=== PATIENT | female | born 1955 | race Caucasian/White ===

== ENCOUNTER 2019-01-25 14:54 | Inpatient (IN) | payer OTHER ==
[~2019-01-25] VITALS: Ht 157.5 cm; Wt 67.6 kg
[2019-01-25] MEDS ORDERED: SODIUM CHLORIDE FLUSH 10ML SYR IVF ONE (15:00)
[2019-01-25] MEDS ORDERED: ASPIRIN 81 MG TABLET CHEW PO ONE (15:00)
--- NOTE | 2019-01-25 15:04 | NUR ---
PT TO ED FOR LEG, ABD AND FACIAL SWELLING X1 WEEK. PT STATES IT STARTED A WEEK AGO, STARTED TO GO AWAY, THEN GOT WORSE YESTERDAY. PT WENT TO THIS AM AND WAS REFERRED TO ED FOR NEW ONSET AFIB/FLUTTER. CONNECTED TO MONITORS. AFIB 110-170, ALL OTHER VSS ON RA. PA JJ TO BEDSIDE FOR ASSESSMETN. ORDERS RECEIVED. PT TO XR AT THIS TIME.
[2019-01-25] MEDS ORDERED: ASPIRIN 81 MG TABLET CHEW ONE (15:09)
[2019-01-25] MEDS ORDERED: DILTIAZEM 5 MG/ML, 5ML IVPush ONE (15:30)
--- NOTE | 2019-01-25 15:38 | NUR ---
LABD DRAWN AND SENT. EKG COMPLETE. PT MEDICATED PER DEC. NEW ORDERS FOR CHEST CT RECEIVED. VSS. NO NEEDS EXPRESSED. WARMER PLACED UNDER BLANKETS FOR PT COMFORT. CALL LIGHT WITHIN REACH. AWAIING RESULTS AND CT.
[2019-01-25 15:45] LABS: BASOPHILS # (AUTO) 0.01 x10^3/uL (0-0.1); BASOPHILS % (AUTO) 0 % (0-1); EOSINOPHILS % (AUTO) 0 % (1-7); LYMPHOCYTES # (AUTO) 0.29 x10^3/uL (1-3.4); LYMPHOCYTES % (AUTO) 4 % (22-44); MD NO; MEAN CORPUSCULAR HEMOGLOBIN 37.5 pg (27.0-34.8); MEAN CORPUSCULAR HGB CONC 34.3 g/dL (32.4-35.8); MEAN CORPUSCULAR VOLUME 109.3 fL (80-100); MEAN PLATELET VOLUME 8.6 fL (7.4-10.4); MONOCYTES # (AUTO) 0.23 x10^3/uL (0.2-0.8); MONOCYTES % (AUTO) 3 % (2-9); NEUTROPHILS % (AUTO) 93 % (42-75); PLATELET COUNT 215 x10^3/uL (130-400); RED BLOOD COUNT 4.03 x10^6/uL (3.82-5.3); RED CELL DISTRIBUTION WIDTH 14.4 % (9.6-15.2)
[2019-01-25 16:06] LABS: CALCIUM 7.8 mg/dL (8.5-10.1); CHLORIDE 79 mmol/L (98-107)
[2019-01-25 16:11] LABS: CREATININE 0.61 mg/dL (0.55-1.02); TROPONIN I < 0.015 ng/mL (0.000-0.045)
[2019-01-25 16:14] LABS: ANION GAP 9 mmol/L (5-15)
[2019-01-25] MEDS ORDERED: DILTIAZEM 125 MG in DEXTROSE 5% 100 ML IV SCH (16:29)
--- NOTE | 2019-01-25 16:30 | NUR ---
PT RESTING IN ROOM WITH FAMILY AT BEDSIDE. REMAINS TACHY, VSS. PT TO CT AT THIS TIME.
--- NOTE | 2019-01-25 16:35 | NUR ---
EDMD TO BEDSIDE TO UPDATE FAMILY ON POC.
[2019-01-25 16:41] LABS: INTERNATIONAL NORMALIZED RATIO 1.16 (0.93-1.1); PROTHROMBIN TIME 12.1 Seconds (9.6-11.5)
--- NOTE | 2019-01-25 16:52 | NUR ---
pt back from ct
[2019-01-25] MEDS ORDERED: ONDANSETRON 2MG/ML, 2ML IVPush PRN (17:00)
[2019-01-25] MEDS ORDERED: DILTIAZEM 125 MG in SODIUM CHLORIDE 0.9% 100 ML IV PRN ×2 (17:00→19:30)
[2019-01-25] MEDS ORDERED: POLYETHYLENE GLYCOL 17 GM PACKET PO PRN (17:00)
[2019-01-25] MEDS ORDERED: ACETAMINOPHEN 325 MG TABLET PO PRN (17:00)
[2019-01-25] MEDS ORDERED: OMNIPAQUE 350 MG/ML, 100ML BOTTLE ONE (17:02)
--- NOTE | 2019-01-25 17:25 | NUR ---
edmd to bedside to update on poc. awaitng room assignment.
--- NOTE | 2019-01-25 17:37 | NUR ---
PT RESTING IN ROOM WITH FAMILY AT BEDSIDE. HR 80S-130S, ALL OTHER VSS ON RA. AWAITING ROOM ASSIGNMENT.
[2019-01-25 17:42] LABS: FREE T4 (FREE THYROXINE) 0.69 ng/dL (0.76-1.46); TROPONIN I 0.023 ng/mL (0.000-0.045)
--- NOTE | 2019-01-25 17:52 | NUR ---
report to [facility] rader in [facility]. pt ready for transport.
[2019-01-25] MEDS: SODIUM CHLORIDE 0.9% 1,000 ML IV SCH (18:46)
[2019-01-25] MEDS ORDERED: LORazepam 1MG TABLET PO ONE (22:00)
[2019-01-25 23:12] LABS: CALCIUM 7.8 mg/dL (8.5-10.1); CHLORIDE 82 mmol/L (98-107); CREATININE 0.67 mg/dL (0.55-1.02)
[2019-01-25 23:17] LABS: TROPONIN I 0.022 ng/mL (0.000-0.045)
[2019-01-25 23:26] LABS: ANION GAP 11 mmol/L (5-15)
[2019-01-26 01:32] LABS: CALCIUM 7.9 mg/dL (8.5-10.1); CHLORIDE 82 mmol/L (98-107); CREATININE 0.69 mg/dL (0.55-1.02)
[2019-01-26 02:01] LABS: ANION GAP 11 mmol/L (5-15)
[2019-01-26 04:00] VITALS: BP 91/46
[2019-01-26] MEDS: SODIUM CHLORIDE 0.9% 1,000 ML IV SCH (04:48)
[2019-01-26 05:30] LABS: MEAN CORPUSCULAR HGB CONC 34.2 g/dL (32.4-35.8); MEAN CORPUSCULAR VOLUME 108.3 fL (80-100); MEAN PLATELET VOLUME 9.1 fL (7.4-10.4); PLATELET COUNT 160 x10^3/uL (130-400); RED CELL DISTRIBUTION WIDTH 14.3 % (9.6-15.2)
[2019-01-26 05:36] LABS: ALANINE AMINOTRANSFERASE 479 U/L (12-78); ALBUMIN 2.7 g/dL (3.4-5.0); ANION GAP 12 mmol/L (5-15); CALCIUM 8.2 mg/dL (8.5-10.1); CHLORIDE 81 mmol/L (98-107); CREATININE 0.66 mg/dL (0.55-1.02)
[2019-01-26 05:38] LABS: ALKALINE PHOSPHATASE 146 U/L (45-117); BILIRUBIN,TOTAL 1.6 mg/dL (0.2-1.0); TOTAL PROTEIN 5.7 g/dL (6.4-8.2)
[2019-01-26 05:59] LABS: BASOPHILS # (AUTO) 0.01 x10^3/uL (0-0.1); BASOPHILS % (AUTO) 0 % (0-1); EOSINOPHILS # (AUTO) 0.01 x10^3/uL (0-0.4); EOSINOPHILS % (AUTO) 0 % (1-7); LYMPHOCYTES # (AUTO) 0.31 x10^3/uL (1-3.4); LYMPHOCYTES % (AUTO) 3 % (22-44); MD MORPH REVIEW ONLY; MONOCYTES # (AUTO) 0.52 x10^3/uL (0.2-0.8); MONOCYTES % (AUTO) 5 % (2-9); NEUTROPHILS # (AUTO) 9.34 x10^3/uL (1.8-6.8); NEUTROPHILS % (AUTO) 92 % (42-75)
[2019-01-26 06:01] LABS: ANISOCYTOSIS 1+
[2019-01-26 06:02] LABS: <PLATELET ESTIMATE> ADEQUATE; ECHINOCYTES 2+; LARGE PLATELETS 1+; POLYCHROMASIA 1+
[2019-01-26 08:17] LABS: ANION GAP 11 mmol/L (5-15); CHLORIDE 83 mmol/L (98-107); CREATININE 0.71 mg/dL (0.55-1.02)
[2019-01-26] MEDS: LIOTHYRONINE 5 MCG TABLET PO SCH ×3 (08:39→20:50)
[2019-01-26] MEDS: LEVOTHYROXINE 100 MCG INJ IVPush SCH (08:39)
[2019-01-26] MEDS: SENNA/DOCUSATE TABLET PO SCH (08:39)
[2019-01-26] MEDS: SODIUM CHLORIDE 3% 500 ML IV PRN (10:49)
[2019-01-26 13:27] LABS: ALANINE AMINOTRANSFERASE 571 U/L (12-78); ALBUMIN 2.8 g/dL (3.4-5.0); CALCIUM 7.8 mg/dL (8.5-10.1); CHLORIDE 80 mmol/L (98-107); CREATININE 0.71 mg/dL (0.55-1.02)
[2019-01-26 13:31] LABS: ALKALINE PHOSPHATASE 159 U/L (45-117); BILIRUBIN,TOTAL 1.5 mg/dL (0.2-1.0); TOTAL PROTEIN 6.1 g/dL (6.4-8.2)
[2019-01-26 13:40] LABS: ANION GAP 14 mmol/L (5-15)
[2019-01-26] MEDS ORDERED: OMNIPAQUE 350 MG/ML, 100ML BOTTLE ONE (14:05)
[2019-01-27] MEDS: SODIUM CHLORIDE 3% 500 ML IV PRN ×2 (03:59→18:08)
[2019-01-27 08:50] LABS: ANION GAP 10 mmol/L (5-15)
[2019-01-27 08:51] LABS: CALCIUM 7.5 mg/dL (8.5-10.1); CHLORIDE 86 mmol/L (98-107)
[2019-01-27 08:52] LABS: ALANINE AMINOTRANSFERASE 556 U/L (12-78); ALBUMIN 2.6 g/dL (3.4-5.0); ALKALINE PHOSPHATASE 142 U/L (45-117); CREATININE 0.58 mg/dL (0.55-1.02); TOTAL PROTEIN 5.5 g/dL (6.4-8.2)
[2019-01-27] MEDS: LIOTHYRONINE 5 MCG TABLET PO SCH ×3 (09:22→20:26)
[2019-01-27] MEDS: SENNA/DOCUSATE TABLET PO SCH (09:22)
[2019-01-27] MEDS: LEVOTHYROXINE 100 MCG INJ IVPush SCH (09:23)
[2019-01-27] MEDS ORDERED: AMIODARONE 900 MG in DEXTROSE 5% 482 ML IV PRN (09:58)
[2019-01-27] MEDS ORDERED: AMIODARONE 150 MG in DEXTROSE 5% 100 ML IVPB ONE (09:58)
[2019-01-27] MEDS ORDERED: FILTER 0.22 MICRON IV PRN (10:00)
[2019-01-27] MEDS ORDERED: DILTIAZEM 5 MG/ML, 5ML IVPush ONE ×2 (10:30→15:30)
[2019-01-27] MEDS ORDERED: HEPARIN 5,000 UNITS/ML, 1ML IV ONE (10:30)
[2019-01-27] MEDS ORDERED: HEPARIN 5,000 UNITS/ML, 1ML IV PRN (10:30)
[2019-01-27] MEDS ORDERED: DILTIAZEM 125 MG in SODIUM CHLORIDE 0.9% 100 ML IV SCH (10:30)
[2019-01-27] MEDS: HEPARIN 25,000 UNITS/500ML PMX 500 ML IV PRN (14:01)
[2019-01-27] MEDS ORDERED: DIGOXIN 0.25 MG/ML, 2ML IVPush ONE ×2 (15:30→20:00)
[2019-01-27] MEDS: FUROSEMIDE 20 MG/2 ML IV SCH (16:07)
[2019-01-28] MEDS ORDERED: DIGOXIN 0.25 MG/ML, 2ML IVPush ONE
[2019-01-28 02:52] LABS: ALANINE AMINOTRANSFERASE 465 U/L (12-78); ALBUMIN 2.5 g/dL (3.4-5.0); ANION GAP 10 mmol/L (5-15); CALCIUM 7.3 mg/dL (8.5-10.1); CHLORIDE 95 mmol/L (98-107); CREATININE 0.54 mg/dL (0.55-1.02)
[2019-01-28 03:02] LABS: ALKALINE PHOSPHATASE 137 U/L (45-117); BILIRUBIN,TOTAL 0.8 mg/dL (0.2-1.0); FREE T4 (FREE THYROXINE) 0.85 ng/dL (0.76-1.46); TOTAL PROTEIN 5.3 g/dL (6.4-8.2)
[2019-01-28] MEDS: SODIUM CHLORIDE 3% 500 ML IV PRN (04:53)
[2019-01-28] MEDS: FUROSEMIDE 20 MG/2 ML IV SCH ×2 (08:04→16:33)
[2019-01-28] MEDS: LEVOTHYROXINE 100 MCG INJ IVPush SCH (08:04)
[2019-01-28] MEDS: LIOTHYRONINE 5 MCG TABLET PO SCH ×3 (08:04→20:44)
[2019-01-28] MEDS: SENNA/DOCUSATE TABLET PO SCH (08:04)
[2019-01-28] MEDS: DIGOXIN 0.125 MG TABLET PO SCH (08:05)
[2019-01-28] MEDS ORDERED: DIGOXIN 0.125 MG TABLET PO SCH (09:00)
[2019-01-28] MEDS ORDERED: DILTIAZEM 125 MG in SODIUM CHLORIDE 0.9% 100 ML IV SCH (10:30)
[2019-01-28] MEDS ORDERED: AMIODARONE 150 MG in DEXTROSE 5% 100 ML IV ONE (11:00)
[2019-01-28] MEDS: AMIODARONE 900 MG in DEXTROSE 5% 482 ML IV PRN (11:03)
[2019-01-28] MEDS: FILTER 0.22 MICRON FOR AMIODARONE IV PRN (11:04)
[2019-01-28] MEDS: HEPARIN 25,000 UNITS/500ML PMX 500 ML IV PRN (20:48)
[2019-01-29] MEDS: SODIUM CHLORIDE 3% 500 ML IV PRN (00:29)
[2019-01-29 03:59] LABS: ALANINE AMINOTRANSFERASE 353 U/L (12-78); ALBUMIN 2.5 g/dL (3.4-5.0); ANION GAP 7 mmol/L (5-15); CALCIUM 7.5 mg/dL (8.5-10.1); CHLORIDE 98 mmol/L (98-107); CREATININE 0.58 mg/dL (0.55-1.02)
[2019-01-29 04:01] LABS: ALKALINE PHOSPHATASE 133 U/L (45-117); BILIRUBIN,TOTAL 0.8 mg/dL (0.2-1.0); TOTAL PROTEIN 5.3 g/dL (6.4-8.2)
[2019-01-29 04:05] LABS: BASOPHILS # (AUTO) 0.03 x10^3/uL (0-0.1); BASOPHILS % (AUTO) 0 % (0-1); EOSINOPHILS # (AUTO) 0.07 x10^3/uL (0-0.4); EOSINOPHILS % (AUTO) 1 % (1-7); LYMPHOCYTES # (AUTO) 0.51 x10^3/uL (1-3.4); LYMPHOCYTES % (AUTO) 6 % (22-44); MD NO; MEAN CORPUSCULAR HEMOGLOBIN 36.8 pg (27.0-34.8); MEAN CORPUSCULAR HGB CONC 33.6 g/dL (32.4-35.8); MEAN CORPUSCULAR VOLUME 109.7 fL (80-100); MONOCYTES # (AUTO) 0.53 x10^3/uL (0.2-0.8); MONOCYTES % (AUTO) 7 % (2-9); NEUTROPHILS # (AUTO) 6.79 x10^3/uL (1.8-6.8); NEUTROPHILS % (AUTO) 86 % (42-75); PLATELET COUNT 217 x10^3/uL (130-400); RED BLOOD COUNT 3.94 x10^6/uL (3.82-5.3); RED CELL DISTRIBUTION WIDTH 14.7 % (9.6-15.2)
[2019-01-29] MEDS: SENNA/DOCUSATE TABLET PO SCH (08:13)
[2019-01-29] MEDS: LIOTHYRONINE 5 MCG TABLET PO SCH (08:13)
[2019-01-29] MEDS: FUROSEMIDE 20 MG/2 ML IV SCH ×2 (08:14→17:23)
[2019-01-29] MEDS: DIGOXIN 0.125 MG TABLET PO SCH (08:14)
[2019-01-29] MEDS: LEVOTHYROXINE 100 MCG INJ IVPush SCH (08:25)
[2019-01-29] MEDS ORDERED: MAGNESIUM SULFATE PMX 2GM/50ML 50 ML IV ONE (09:30)
[2019-01-29 13:06] VITALS: BP 93/57
[2019-01-29] MEDS: AMIODARONE 900 MG in DEXTROSE 5% 482 ML IV PRN (13:28)
[2019-01-29] MEDS: FILTER 0.22 MICRON FOR AMIODARONE IV PRN (13:28)
[2019-01-29] MEDS ORDERED: POTASSIUM CHLORIDE 20 MEQ TAB.ER.PRT PO SCH (15:30)
[2019-01-29 19:54] VITALS: BP 112/71
[2019-01-30] VITALS (7 sets, daily range): BP systolic 80–121; BP diastolic 53–74
[2019-01-30] MEDS: HEPARIN 25,000 UNITS/500ML PMX 500 ML IV PRN (00:04)
[2019-01-30 05:17] LABS: BASOPHILS # (AUTO) 0.02 x10^3/uL (0-0.1); BASOPHILS % (AUTO) 0 % (0-1); EOSINOPHILS # (AUTO) 0.01 x10^3/uL (0-0.4); EOSINOPHILS % (AUTO) 0 % (1-7); LYMPHOCYTES # (AUTO) 0.41 x10^3/uL (1-3.4); LYMPHOCYTES % (AUTO) 5 % (22-44); MD NO; MEAN CORPUSCULAR HEMOGLOBIN 36.2 pg (27.0-34.8); MEAN CORPUSCULAR HGB CONC 33.2 g/dL (32.4-35.8); MEAN CORPUSCULAR VOLUME 109.2 fL (80-100); MEAN PLATELET VOLUME 8.9 fL (7.4-10.4); MONOCYTES # (AUTO) 0.62 x10^3/uL (0.2-0.8); MONOCYTES % (AUTO) 8 % (2-9); NEUTROPHILS # (AUTO) 6.59 x10^3/uL (1.8-6.8); NEUTROPHILS % (AUTO) 86 % (42-75); PLATELET COUNT 201 x10^3/uL (130-400); RED BLOOD COUNT 4.16 x10^6/uL (3.82-5.3); RED CELL DISTRIBUTION WIDTH 14.6 % (9.6-15.2)
[2019-01-30 05:28] LABS: CALCIUM 7.4 mg/dL (8.5-10.1); CHLORIDE 90 mmol/L (98-107)
[2019-01-30] MEDS: LEVOTHYROXINE 50 MCG TABLET PO SCH (05:38)
[2019-01-30 05:45] LABS: ALANINE AMINOTRANSFERASE 270 U/L (12-78); ALBUMIN 2.4 g/dL (3.4-5.0); ALKALINE PHOSPHATASE 127 U/L (45-117); ANION GAP 7 mmol/L (5-15); CREATININE 0.53 mg/dL (0.55-1.02); TOTAL PROTEIN 5.4 g/dL (6.4-8.2)
[2019-01-30] MEDS: FUROSEMIDE 20 MG/2 ML IV SCH ×2 (09:56→17:57)
[2019-01-30] MEDS: SENNA/DOCUSATE TABLET PO SCH (09:57)
[2019-01-30] MEDS: APIXABAN 5 MG TABLET PO SCH ×2 (09:57→21:12)
[2019-01-30] MEDS: AMIODARONE 200 MG TABLET PO SCH ×2 (09:57→21:00)
[2019-01-30] MEDS: POTASSIUM CHLORIDE 20 MEQ TAB.ER.PRT PO SCH (11:24)
[2019-01-30] MEDS: DIGOXIN 0.125 MG TABLET PO SCH (11:24)
[2019-01-30 15:12] LABS: CHLORIDE,URINE RANDOM 46 mmol/L; POTASSIUM,URINE RANDOM 8 mmol/L; SODIUM,URINE RANDOM 34 mmol/L
[2019-01-30 15:53] LABS: OSMOLALITY,URINE 153 mOsm/kg (500-850)
[2019-01-31 00:44] VITALS: BP 100/65
[2019-01-31] MEDS: LEVOTHYROXINE 50 MCG TABLET PO SCH (05:50)
[2019-01-31 07:40] VITALS: BP 114/74
[2019-01-31] MEDS: FUROSEMIDE 20 MG/2 ML IV SCH ×2 (08:11→17:16)
[2019-01-31] MEDS: SENNA/DOCUSATE TABLET PO SCH (08:11)
[2019-01-31] MEDS: APIXABAN 5 MG TABLET PO SCH ×2 (08:12→21:49)
[2019-01-31] MEDS: DIGOXIN 0.125 MG TABLET PO SCH (08:12)
[2019-01-31] MEDS: POTASSIUM CHLORIDE 20 MEQ TAB.ER.PRT PO SCH (08:12)
[2019-01-31] MEDS: AMIODARONE 200 MG TABLET PO SCH ×2 (08:13→21:48)
[2019-01-31 09:06] LABS: ALBUMIN 2.6 g/dL (3.4-5.0); ANION GAP 6 mmol/L (5-15); CALCIUM 8.3 mg/dL (8.5-10.1); CHLORIDE 91 mmol/L (98-107); CREATININE 0.55 mg/dL (0.55-1.02)
[2019-01-31 11:55] LABS: MICROSCOPIC NOT IND
[2019-01-31 11:58] LABS: CULTURE INDICATED? NO
[2019-01-31 13:47] LABS: CREATININE,URINE RANDOM < 13.00 mg/dL; PROTEIN/CREATININE RATIO,URINE < 385 (0-200); TOTAL PROTEIN,URINE RANDOM < 5 mg/dL (0-12)
[2019-01-31 14:15] VITALS: BP 92/64
[2019-01-31 17:17] VITALS: BP 112/73
[2019-01-31 19:44] VITALS: BP 93/62
[2019-02-01 01:20] VITALS: BP 110/73
[2019-02-01 05:22] LABS: BASOPHILS # (AUTO) 0.03 x10^3/uL (0-0.1); BASOPHILS % (AUTO) 1 % (0-1); EOSINOPHILS # (AUTO) 0.01 x10^3/uL (0-0.4); EOSINOPHILS % (AUTO) 0 % (1-7); LYMPHOCYTES # (AUTO) 0.45 x10^3/uL (1-3.4); LYMPHOCYTES % (AUTO) 7 % (22-44); MD NO; MEAN CORPUSCULAR HGB CONC 33.8 g/dL (32.4-35.8); MEAN CORPUSCULAR VOLUME 109.3 fL (80-100); MEAN PLATELET VOLUME 8.7 fL (7.4-10.4); MONOCYTES # (AUTO) 0.65 x10^3/uL (0.2-0.8); MONOCYTES % (AUTO) 11 % (2-9); NEUTROPHILS # (AUTO) 4.97 x10^3/uL (1.8-6.8); NEUTROPHILS % (AUTO) 81 % (42-75); PLATELET COUNT 205 x10^3/uL (130-400); RED BLOOD COUNT 3.88 x10^6/uL (3.82-5.3); RED CELL DISTRIBUTION WIDTH 14.4 % (9.6-15.2)
[2019-02-01 05:32] LABS: ANION GAP 5 mmol/L (5-15); CALCIUM 8.2 mg/dL (8.5-10.1); CHLORIDE 92 mmol/L (98-107); CREATININE 0.54 mg/dL (0.55-1.02)
[2019-02-01] MEDS: LEVOTHYROXINE 50 MCG TABLET PO SCH (05:41)
[2019-02-01 06:52] VITALS: BP 106/68
[2019-02-01] MEDS: AMIODARONE 200 MG TABLET PO SCH ×2 (09:40→21:38)
[2019-02-01] MEDS: POTASSIUM CHLORIDE 20 MEQ TAB.ER.PRT PO SCH (09:40)
[2019-02-01] MEDS: FUROSEMIDE 20 MG/2 ML IV SCH ×2 (09:40→17:00)
[2019-02-01] MEDS: APIXABAN 5 MG TABLET PO SCH ×2 (09:41→21:38)
[2019-02-01] MEDS: DIGOXIN 0.125 MG TABLET PO SCH (09:41)
[2019-02-01] MEDS: SENNA/DOCUSATE TABLET PO SCH (09:42)
[2019-02-01 17:48] VITALS: BP_SYST 93; BP_SYST 97; BP_DIAS 60; BP_DIAS 62
[2019-02-01 20:24] VITALS: BP 107/68
[2019-02-02 03:20] VITALS: BP 102/59
[2019-02-02 06:11] LABS: BASOPHILS # (AUTO) 0.04 x10^3/uL (0-0.1); BASOPHILS % (AUTO) 1 % (0-1); EOSINOPHILS # (AUTO) 0.01 x10^3/uL (0-0.4); EOSINOPHILS % (AUTO) 0 % (1-7); LYMPHOCYTES # (AUTO) 0.55 x10^3/uL (1-3.4); LYMPHOCYTES % (AUTO) 9 % (22-44); MD NO; MEAN CORPUSCULAR HEMOGLOBIN 36.7 pg (27.0-34.8); MEAN CORPUSCULAR HGB CONC 33.6 g/dL (32.4-35.8); MEAN CORPUSCULAR VOLUME 109.5 fL (80-100); MEAN PLATELET VOLUME 8.6 fL (7.4-10.4); MONOCYTES # (AUTO) 0.77 x10^3/uL (0.2-0.8); MONOCYTES % (AUTO) 12 % (2-9); NEUTROPHILS # (AUTO) 4.87 x10^3/uL (1.8-6.8); NEUTROPHILS % (AUTO) 78 % (42-75); PLATELET COUNT 210 x10^3/uL (130-400); RED BLOOD COUNT 4.17 x10^6/uL (3.82-5.3)
[2019-02-02 06:20] LABS: ANION GAP 3 mmol/L (5-15); CALCIUM 8.8 mg/dL (8.5-10.1); CHLORIDE 93 mmol/L (98-107)
[2019-02-02 06:21] LABS: CREATININE 0.56 mg/dL (0.55-1.02)
[2019-02-02] MEDS: LEVOTHYROXINE 50 MCG TABLET PO SCH (06:23)
[2019-02-02 06:40] VITALS: BP 91/61
[2019-02-02] MEDS ORDERED: DIGO125T PO (08:51)
[2019-02-02] MEDS ORDERED: AMIO200T42 PO (08:51)
[2019-02-02] MEDS ORDERED: LEVO50TA PO (08:51)
[2019-02-02] MEDS ORDERED: TRAM50TA2 PO (08:51)
[2019-02-02] MEDS ORDERED: POTA20TA6 PO (08:51)
[2019-02-02] MEDS ORDERED: FURO-92 PO (08:51)
[2019-02-02] MEDS ORDERED: APIX5TAB PO (08:51)
[2019-02-02] MEDS: POTASSIUM CHLORIDE 20 MEQ TAB.ER.PRT PO SCH (08:55)
[2019-02-02] MEDS: AMIODARONE 200 MG TABLET PO SCH (08:56)
[2019-02-02] MEDS: DIGOXIN 0.125 MG TABLET PO SCH (08:56)
[2019-02-02] MEDS: APIXABAN 5 MG TABLET PO SCH (08:56)
[2019-02-02] MEDS: SENNA/DOCUSATE TABLET PO SCH (08:57)
[2019-02-02] MEDS: FUROSEMIDE 20 MG/2 ML IV SCH (08:57)
[2019-02-03] MEDS ORDERED: AMIODARONE 200 MG TABLET PO SCH (09:00)
== END 2019-02-02 11:30 | disposition home or self-care (01) | DRG 308 ==
LOC: ED 16:37 → EDIP 16:38 → ED 17:12 → CCU 18:14 → ICU 01-26 06:42 → 5SO 01-29 11:32 → DCLOUNGE 02-02 11:00
PROVIDERS: ADMIT Internal Medicine; ATTEND Internal Medicine
DX: I48.92 Unspecified atrial flutter (principal); G93.41 Metabolic encephalopathy; I50.43 Acute on chronic combined systolic (congestive) and diastolic (congestive) heart failure; E87.1 Hypo-osmolality and hyponatremia; C81.90 Hodgkin lymphoma, unspecified, unspecified site; D68.69 Other thrombophilia; E44.0 Moderate protein-calorie malnutrition; M48.54XA Collapsed vertebra, not elsewhere classified, thoracic region, initial encounter for fracture; R18.8 Other ascites; D53.9 Nutritional anemia, unspecified; D75.89 Other specified diseases of blood and blood-forming organs; E03.9 Hypothyroidism, unspecified; E16.2 Hypoglycemia, unspecified; E83.42 Hypomagnesemia; E83.51 Hypocalcemia; E87.6 Hypokalemia; F17.210 Nicotine dependence, cigarettes, uncomplicated; G89.29 Other chronic pain; I08.3 Combined rheumatic disorders of mitral, aortic and tricuspid valves; I27.20 Pulmonary hypertension, unspecified; I48.91 Unspecified atrial fibrillation; F12.90 Cannabis use, unspecified, uncomplicated; M54.9 Dorsalgia, unspecified; J40 Bronchitis, not specified as acute or chronic; Z79.01 Long term (current) use of anticoagulants; Z80.0 Family history of malignant neoplasm of digestive organs; Z90.81 Acquired absence of spleen; Z91.14 Patient's other noncompliance with medication regimen; Z92.3 Personal history of irradiation; Z98.82 Breast implant status
CPT/HCPCS: 36415; 70450; 71046; 71260; 71275; 74177; 80048; 80053; 80069; 80162; 81003; 82040; 82105; 82378; 82436; 82533; 82570; 82607; 82962; 83735; 83880; 83930; 83935; 84100; 84133; 84156; 84295; 84300; 84439; 84443; 84481; 84484; 85025; 85379; 85520; 85610; 85730; 86301; 86304; 87081; 93005; 93306; 94667; 96374; 99285; G0378; J1644; J2405; Q9967; J0282; J1160; J1940; J3475; J7030; J7060

== ENCOUNTER 2019-03-14 09:36 | Inpatient (IN) | payer OTHER ==
[~2019-03-14] VITALS: Ht 157.5 cm; Wt 57.2 kg
[~2019-03-14 09:36] MED LIST: AMIO200T42 PO; APIX5TAB PO; DIGO125T PO; FURO-92 PO; LEVO50TA PO; POTA20TA6 PO; TRAM50TA2 PO
[2019-03-14 10:44] LABS: MEAN CORPUSCULAR HEMOGLOBIN 36.5 pg (27.0-34.8); MEAN CORPUSCULAR HGB CONC 33.2 g/dL (32.4-35.8); MEAN CORPUSCULAR VOLUME 109.9 fL (80-100); MEAN PLATELET VOLUME 8.8 fL (7.4-10.4); PLATELET COUNT 394 x10^3/uL (130-400); RED CELL DISTRIBUTION WIDTH 15.6 % (9.6-15.2)
[2019-03-14 10:56] LABS: ALBUMIN 3.1 g/dL (3.4-5.0); ANION GAP 9 mmol/L (5-15); CALCIUM 9.1 mg/dL (8.5-10.1); CHLORIDE 96 mmol/L (98-107)
[2019-03-14 10:59] LABS: ALANINE AMINOTRANSFERASE 27 U/L (12-78); ALKALINE PHOSPHATASE 91 U/L (45-117); BILIRUBIN,TOTAL 1.1 mg/dL (0.2-1.0); CREATININE 0.82 mg/dL (0.55-1.02); TOTAL PROTEIN 7.8 g/dL (6.4-8.2)
[2019-03-14 11:02] LABS: MD YES
[2019-03-14 11:03] LABS: ANISOCYTOSIS 1+; BAND#(MANUAL) 0.79 x10^3/uL; BANDS%(MANUAL) 5 % (0-7); LYMPH#(MANUAL) 0.63 x10^3/uL (1-3.4); LYMPHS% (MANUAL) 4 % (22-44); MONOS#(MANUAL) 0.47 x10^3/uL (0.3-2.7); MONOS% (MANUAL) 3 % (2-9); SEG#(MANUAL) 13.82 x10^3/uL (1.8-6.8); SEGS% (MANUAL) 88 % (42-75)
[2019-03-14] MEDS ORDERED: FURO40TA6 PO (11:03)
[2019-03-14 11:04] LABS: <PLATELET ESTIMATE> ADEQUATE; <PLT MORPHOLOGY> NORMAL PLT MORPH
--- NOTE | 2019-03-14 12:03 | NUR ---
PT TO CT WITH [facility]CH TRANSPORT. PT C/O HUNGER AND REQUESTS TO EAT. I INSTRUCTED HER THAT SHE CAN NOT HAVE ANYTHING TO EAT OR DRINK UNTIL STUDIES HAVE BEEN COMPLETED. 2/2 CONCERNS FOR POSSIBLE SURGERY TODAY.
[2019-03-14] MEDS ORDERED: OMNIPAQUE 350 MG/ML, 100ML BOTTLE ONE (12:10)
[2019-03-14 12:33] LABS: MICROSCOPIC INDICATED
--- NOTE | 2019-03-14 12:49 | NUR ---
ER PA AT BEDSIDE. TO DISCUSS PLAN FOR SURGERY AND DELAY 2/2 BEING ON BLOOD THINNER
--- NOTE | 2019-03-14 12:55 | NUR ---
PT OOB AMBULATE TO BATHROOM.
[2019-03-14 12:59] LABS: CULTURE INDICATED? NO
--- NOTE | 2019-03-14 14:10 | NUR ---
RECEIVED REPORT FROM JULISSA HENDERSON AND ASSUMED CARE OF PT. PT RETURNING TO ROOM FROM BATHROOM. PT C/O ABDOMINAL PAIN 04/13 AT THIS TIME
--- NOTE | 2019-03-14 14:17 | NUR ---
SPOKE WITH ROMELIA WITH DR GONZALEZ'S OFFICE: SURGERY TOMORROW AT 1700. NPO AT MIDNIGHT. CONSENT FOR OPEN REPAIR LEFT INGUINAL HERNIA WITH MESH WITH POSSIBLE BOWEL RESECTION
--- NOTE | 2019-03-14 15:15 | NUR ---
PT C/O ABDOMINAL PAIN. DR DOS SANTOS NO LONGER HERE. CALL PUT OUT TO HOSPITALIST AND MADE AWARE WE NEED ADMIT ORDERS AND THAT THE PT NEEDS ORDER FOR PAIN MEDS. HOSPITALIST STATES HE WILL BE DOWN RIGHT AWAY
--- NOTE | 2019-03-14 15:53 | NUR ---
HOSPITALIST AT BEDSIDE
[2019-03-14] MEDS ORDERED: MORPHINE SULFATE 4 MG/ML, 1ML ONE (15:55)
[2019-03-14] MEDS ORDERED: ONDANSETRON 2MG/ML, 2ML ONE (15:55)
[2019-03-14] MEDS ORDERED: hydrALAzine 20 MG/ML, 1ML IVPush PRN (16:00)
[2019-03-14] MEDS ORDERED: ACETAMINOPHEN 325 MG TABLET PO PRN (16:00)
[2019-03-14] MEDS ORDERED: DOCUSATE 100 MG CAPSULE PO PRN (16:00)
[2019-03-14] MEDS: ONDANSETRON 2MG/ML, 2ML IVPush PRN ×2 (16:06→21:38)
[2019-03-14] MEDS: morphine SULFATE 10 MG/ML, 1ML IVPush PRN ×2 (16:06→21:40)
--- NOTE | 2019-03-14 16:09 | NUR ---
AFTER HOSPITALIST EXAM, MEDICATED FOR PAIN PER ORDERS
--- NOTE | 2019-03-14 16:34 | NUR ---
BREAK RN: PT STATES HER PAIN IS BETTER. NO ACUTE DISTRESS NOTED. SIGNIFICANT OTHER BEDSIDE. NO NEEDS REQUESTED AT THIS TIME.
--- NOTE | 2019-03-14 16:44 | NUR ---
BREAK RN: PT AND FAMILY RE-EDUCATED REGARDING NPO STATUS. HOSPITALIST STATED PT COULD HAVE ICE CHIPS AND SPIT OUT. PT AND FAMILY VERBALIZED UNDERSTANDING. NO NEEDS REQUESTED AT THIS TIME.
--- NOTE | 2019-03-14 16:52 | NUR ---
BREAK RN: BEDSIDE REPORT TO BEATRIZ GAMBINO.
--- NOTE | 2019-03-14 17:13 | NUR ---
PT MORE COMFORTABLE SINCE MEDICATED FOR PAIN. FAMILY AT BEDSIDE. AWAITING ROOM ON FLOOR
[2019-03-14] MEDS: D5%-LACTATED RINGERS 1,000 ML IV SCH (18:35)
--- NOTE | 2019-03-14 19:14 | NUR ---
PT HOLDING FOR ROOM ASSIGNMENT. PLACED ON HOSPITAL BED IN ER ROOM. PT DESCRIBES PAIN AT THIS TIME MORE LOCALIZED TO LOCATION OF LEFT UMBILICAL HERNIA, 12/12. DENIES NAUSEA OR VOMITING
--- NOTE | 2019-03-14 19:37 | NUR ---
REPORT TO TOD HENDERSON. PT TO BE TRANSPORTED TO FLOOR.
[2019-03-14 20:32] VITALS: BP 113/73
[2019-03-15 01:01] VITALS: BP 99/64
[2019-03-15 01:28] VITALS: BP 102/68
[2019-03-15] MEDS: morphine SULFATE 10 MG/ML, 1ML IVPush PRN ×4 (01:33→13:39)
[2019-03-15 05:59] VITALS: BP 104/70
[2019-03-15 06:19] LABS: MEAN CORPUSCULAR HEMOGLOBIN 36.9 pg (27.0-34.8); MEAN CORPUSCULAR HGB CONC 33.1 g/dL (32.4-35.8); MEAN CORPUSCULAR VOLUME 111.5 fL (80-100); MEAN PLATELET VOLUME 8.8 fL (7.4-10.4); PLATELET COUNT 333 x10^3/uL (130-400); RED BLOOD COUNT 3.57 x10^6/uL (3.82-5.3); RED CELL DISTRIBUTION WIDTH 15.5 % (9.6-15.2)
[2019-03-15 06:23] LABS: ANION GAP 3 mmol/L (5-15); CALCIUM 8.2 mg/dL (8.5-10.1); CHLORIDE 98 mmol/L (98-107); CREATININE 0.78 mg/dL (0.55-1.02)
[2019-03-15 06:35] LABS: MD YES
[2019-03-15 06:37] LABS: ANISOCYTOSIS 1+; BAND#(MANUAL) 0.09 x10^3/uL; BANDS%(MANUAL) 1 % (0-7); EOS#(MANUAL) 0.09 x10^3/uL (0.0-0.4); EOS% (MANUAL) 1 % (1-7); LYMPH#(MANUAL) 0.18 x10^3/uL (1-3.4); LYMPHS% (MANUAL) 2 % (22-44); MONOS#(MANUAL) 1.44 x10^3/uL (0.3-2.7); MONOS% (MANUAL) 16 % (2-9); MYELOCYTES# (MANUAL) 0.09 x10^3/uL (0-0); MYELOCYTES% (MANUAL) 1 % (0-0); SEG#(MANUAL) 7.11 x10^3/uL (1.8-6.8); SEGS% (MANUAL) 79 % (42-75)
[2019-03-15 06:38] LABS: CRENATED 1+
[2019-03-15 06:39] LABS: <PLATELET ESTIMATE> ADEQUATE
[2019-03-15 06:40] VITALS: BP 96/62
[2019-03-15 06:42] LABS: LARGE PLATELETS 1+
[2019-03-15] MEDS ORDERED: PANTOPRAZOLE 40 MG IV IVPush SCH (07:30)
[2019-03-15] MEDS: D5%-LACTATED RINGERS 1,000 ML IV SCH (09:20)
[2019-03-15] MEDS: LEVOTHYROXINE 50 MCG TABLET PO SCH (09:55)
[2019-03-15] MEDS: DIGOXIN 0.125 MG TABLET PO SCH (09:55)
[2019-03-15 12:18] VITALS: BP 101/64
[2019-03-15] MEDS ORDERED: FENTANYL PF 100 MCG/2ML ONE (16:39)
[2019-03-15] MEDS ORDERED: MIDAZOLAM 1 MG/ML, 2ML ONE (16:39)
[2019-03-15] MEDS ORDERED: DEXAMETHASONE 4 MG/ML, 1ML ONE ×2 (16:52→17:20)
[2019-03-15] MEDS ORDERED: SUCCINYLCHOLINE 20 MG/ML, 10ML ONE (16:52)
[2019-03-15] MEDS ORDERED: PHENYLEPHRINE 10 MG/ML ONE (16:52)
[2019-03-15] MEDS ORDERED: VASOPRESSIN 20 UNIT/ML, 1ML ONE (17:20)
[2019-03-15] MEDS ORDERED: ONDANSETRON 2MG/ML, 2ML ONE (17:20)
[2019-03-15] MEDS ORDERED: CEFAZOLIN 1,000 MG ONE (17:20)
[2019-03-15] MEDS ORDERED: PROPOFOL 10 MG/ML, 20ML ONE (17:20)
[2019-03-15] MEDS ORDERED: BUPIVACAINE/EPI 0.5% 1:200K ONE (17:26)
[2019-03-15] MEDS ORDERED: ACETAMINOPHEN 325 MG TABLET PO PRN (17:30)
[2019-03-15] MEDS ORDERED: ONDANSETRON 2MG/ML, 2ML IV PRN ×2 (17:30→19:30)
[2019-03-15] MEDS ORDERED: METOPROLOL 1 MG/ML, 5ML IV PRN (17:30)
[2019-03-15] MEDS ORDERED: hydrALAzine 20 MG/ML, 1ML IV PRN (17:30)
[2019-03-15] MEDS ORDERED: PROMETHAZINE 25 MG/ML, 1ML IV PRN (17:30)
[2019-03-15] MEDS ORDERED: FENTANYL PF 100 MCG/2ML IV PRN (17:30)
[2019-03-15] MEDS ORDERED: OXYcodone 5 MG/5 ML ORAL.SOL UDC PO PRN (17:30)
[2019-03-15] MEDS ORDERED: ALBUTEROL/IPRATROPIUM 2.5MG/0.5MG, 3 ML NPPB PRN (17:30)
[2019-03-15] MEDS ORDERED: POTASSIUM CHLORIDE 20 MEQ in SODIUM CHLORIDE 0.9% 1,000 ML IV SCH (19:30)
[2019-03-15] MEDS ORDERED: morphine SULFATE 10 MG/ML, 1ML IV PRN (19:30)
[2019-03-15] MEDS: OXYcodone IR 5MG TABLET PO PRN (20:15)
[2019-03-15] MEDS: SODIUM CHLORIDE 0.9% 500 ML IV SCH ×2 (22:29→23:26)
[2019-03-15] MEDS ORDERED: SODIUM CHLORIDE 0.9% 500 ML IV PRN ×2 (22:30→23:30)
[2019-03-16] MEDS: OXYcodone IR 5MG TABLET PO PRN ×3 (03:03→14:47)
[2019-03-16 04:29] LABS: MEAN CORPUSCULAR HEMOGLOBIN 37.1 pg (27.0-34.8); MEAN CORPUSCULAR HGB CONC 33.2 g/dL (32.4-35.8); MEAN PLATELET VOLUME 8.9 fL (7.4-10.4); PLATELET COUNT 330 x10^3/uL (130-400); RED BLOOD COUNT 3.29 x10^6/uL (3.82-5.3); RED CELL DISTRIBUTION WIDTH 15.4 % (9.6-15.2)
[2019-03-16 04:41] LABS: ALBUMIN 2.4 g/dL (3.4-5.0); ANION GAP 6 mmol/L (5-15); CALCIUM 7.7 mg/dL (8.5-10.1); CHLORIDE 103 mmol/L (98-107)
[2019-03-16 04:45] LABS: ALANINE AMINOTRANSFERASE 20 U/L (12-78); ALKALINE PHOSPHATASE 67 U/L (45-117); BILIRUBIN,TOTAL 0.6 mg/dL (0.2-1.0); TOTAL PROTEIN 6.3 g/dL (6.4-8.2)
[2019-03-16 04:53] LABS: BASOPHILS % (AUTO) 0 % (0-1); EOSINOPHILS % (AUTO) 0 % (1-7); LYMPHOCYTES # (AUTO) 0.18 x10^3/uL (1-3.4); LYMPHOCYTES % (AUTO) 2 % (22-44); MD SCAN; MONOCYTES # (AUTO) 0.24 x10^3/uL (0.2-0.8); MONOCYTES % (AUTO) 2 % (2-9); NEUTROPHILS # (AUTO) 10.16 x10^3/uL (1.8-6.8); NEUTROPHILS % (AUTO) 96 % (42-75)
[2019-03-16] MEDS: CEFOTETAN PMX 1GM/50ML 50 ML IVPB SCH ×2 (05:15→17:16)
[2019-03-16] MEDS: LEVOTHYROXINE 50 MCG TABLET PO SCH (05:15)
[2019-03-16] MEDS: AMIODARONE 200 MG TABLET PO SCH (08:09)
[2019-03-16] MEDS: DIGOXIN 0.125 MG TABLET PO SCH (08:09)
[2019-03-16] MEDS: APIXABAN 5 MG TABLET PO SCH ×2 (08:09→20:09)
[2019-03-16 16:08] VITALS: BP 115/77
[2019-03-16 19:16] VITALS: BP 109/70
[2019-03-16] MEDS: morphine SULFATE 10 MG/ML, 1ML IVPush PRN (20:17)
[2019-03-17] MEDS: morphine SULFATE 10 MG/ML, 1ML IVPush PRN ×3 (00:55→12:12)
[2019-03-17 01:34] VITALS: BP 100/61
[2019-03-17] MEDS: LEVOTHYROXINE 50 MCG TABLET PO SCH (05:19)
[2019-03-17 06:15] LABS: MEAN CORPUSCULAR HEMOGLOBIN 36.2 pg (27.0-34.8); MEAN CORPUSCULAR HGB CONC 32.7 g/dL (32.4-35.8); MEAN CORPUSCULAR VOLUME 110.8 fL (80-100); MEAN PLATELET VOLUME 8.8 fL (7.4-10.4); PLATELET COUNT 337 x10^3/uL (130-400); RED BLOOD COUNT 3.45 x10^6/uL (3.82-5.3); RED CELL DISTRIBUTION WIDTH 15.3 % (9.6-15.2)
[2019-03-17 06:21] LABS: CHLORIDE 102 mmol/L (98-107)
[2019-03-17 06:28] LABS: ANION GAP 5 mmol/L (5-15); CALCIUM 8.1 mg/dL (8.5-10.1); CREATININE 0.75 mg/dL (0.55-1.02)
[2019-03-17 06:43] LABS: BASOPHILS # (AUTO) 0.05 x10^3/uL (0-0.1); BASOPHILS % (AUTO) 1 % (0-1); EOSINOPHILS % (AUTO) 1 % (1-7); LYMPHOCYTES # (AUTO) 0.43 x10^3/uL (1-3.4); LYMPHOCYTES % (AUTO) 4 % (22-44); MD SCAN; MONOCYTES # (AUTO) 0.81 x10^3/uL (0.2-0.8); MONOCYTES % (AUTO) 8 % (2-9); NEUTROPHILS # (AUTO) 8.66 x10^3/uL (1.8-6.8); NEUTROPHILS % (AUTO) 86 % (42-75)
[2019-03-17 07:56] VITALS: BP 91/59
[2019-03-17] MEDS: APIXABAN 5 MG TABLET PO SCH (08:18)
[2019-03-17] MEDS: AMIODARONE 200 MG TABLET PO SCH (08:18)
[2019-03-17] MEDS: DIGOXIN 0.125 MG TABLET PO SCH (08:18)
[2019-03-17] MEDS ORDERED: AMIO200T42 PO (14:19)
[2019-03-17] MEDS ORDERED: OXYC5TAB3 PO (14:19)
[2019-03-17 15:33] VITALS: BP 92/60
== END 2019-03-17 16:25 | disposition home or self-care (01) | DRG 351 ==
LOC: ED 11:32 → EDIP 16:13 → 4EST 20:07 → CCU 03-15 18:55 → 3NE 03-16 15:55 → DCLOUNGE 03-17 16:11
PROVIDERS: ADMIT Internal Medicine; ATTEND Internal Medicine
PROC: 0YQ60ZZ Repair Left Inguinal Region, Open Approach (ICD-10-PCS; principal; 2019-03-15 17:00)
DX: K40.30 Unilateral inguinal hernia, with obstruction, without gangrene, not specified as recurrent (principal); C81.90 Hodgkin lymphoma, unspecified, unspecified site; D68.69 Other thrombophilia; E87.1 Hypo-osmolality and hyponatremia; I42.0 Dilated cardiomyopathy; I48.92 Unspecified atrial flutter; I50.32 Chronic diastolic (congestive) heart failure; K56.601 Complete intestinal obstruction, unspecified as to cause; D72.829 Elevated white blood cell count, unspecified; E03.9 Hypothyroidism, unspecified; G89.4 Chronic pain syndrome; I08.3 Combined rheumatic disorders of mitral, aortic and tricuspid valves; I11.0 Hypertensive heart disease with heart failure; I27.20 Pulmonary hypertension, unspecified; I48.0 Paroxysmal atrial fibrillation; Z88.5 Allergy status to narcotic agent; Z88.8 Allergy status to other drugs, medicaments and biological substances
CPT/HCPCS: 36415; 99285; J7121; 71045; 74177; 80048; 80053; 80162; 81001; 83605; 83690; 83735; 84100; 85025; 86850; 86900; 87081; 88302; 93005; G0378; J0690; J1100; J2250; J2405; J2704; J3010; J3480; Q9967; C9113; J0330; J2270; J2370; J3490; J7030; J7040

== ENCOUNTER 2019-04-19 12:39 | Outpatient (CLI) | payer OTHER ==
[~2019-04-19] VITALS: Ht 157.5 cm; Wt 52.3 kg
== END 2019-04-19 23:59 | disposition home or self-care (01) ==
LOC: STAR 12:39
PROVIDERS: ATTEND Internal Medicine Cardiovascular Disease
DX: Z01.810 Encounter for preprocedural cardiovascular examination (principal); I35.0 Nonrheumatic aortic (valve) stenosis; I48.91 Unspecified atrial fibrillation; E87.1 Hypo-osmolality and hyponatremia; R63.4 Abnormal weight loss; I36.1 Nonrheumatic tricuspid (valve) insufficiency
CPT/HCPCS: 36415; 80048; 85025

== ENCOUNTER 2019-04-20 11:11 | Day surgery (SDC) | payer OTHER ==
[~2019-04-20] VITALS: Ht 157.5 cm; Wt 52.3 kg
[~2019-04-20 11:11] MED LIST changes: +FURO40TA6 PO; +LEVO50TA5 PO; +OXYC5TAB3 PO
[2019-04-20] MEDS ORDERED: SODIUM CHLORIDE 0.9% 1,000 ML IV SCH ×2 (11:29→14:28)
[2019-04-20 11:50] VITALS: BP 142/75
[2019-04-20] MEDS ORDERED: PLEASE ENTER HEIGHT AND WEIGHT MC SCH (12:00)
[2019-04-20] MEDS ORDERED: BIVALIRUDIN 250 MG ONE (13:44)
[2019-04-20] MEDS ORDERED: LIDOCAINE-MPF 1%, 5ML ONE (13:44)
[2019-04-20] MEDS ORDERED: TICAGRELOR 90 MG TABLET ONE (13:44)
[2019-04-20] MEDS ORDERED: HEPARIN 1,000 UNITS/ML, 10ML ONE (13:44)
[2019-04-20] MEDS ORDERED: MIDAZOLAM 1 MG/ML, 5ML ONE (13:44)
[2019-04-20] MEDS ORDERED: FENTANYL PF 100 MCG/2ML ONE (13:44)
[2019-04-20] MEDS ORDERED: VERAPAMIL 2.5 MG/ML, 2ML ONE (13:44)
== END 2019-04-20 16:40 | disposition home or self-care (01) ==
LOC: CACL 11:11
PROVIDERS: ATTEND Internal Medicine Cardiovascular Disease
DX: I08.2 Rheumatic disorders of both aortic and tricuspid valves (principal); I10 Essential (primary) hypertension; I48.91 Unspecified atrial fibrillation; E03.9 Hypothyroidism, unspecified; Z72.89 Other problems related to lifestyle; Z79.01 Long term (current) use of anticoagulants; Z79.890 Hormone replacement therapy; Z79.899 Other long term (current) drug therapy; Z88.5 Allergy status to narcotic agent; Z91.011 Allergy to milk products
CPT/HCPCS: 93454; 99156; C1769; C1894; J1644; J2250; J3010; J7030; Q9967; J0583

== ENCOUNTER 2019-05-02 11:35 | Outpatient (CLI) | payer OTHER | END 2019-05-02 23:59 | disposition home or self-care (01) | LOC: CVU 11:35 → RAD 23:59 | PROVIDERS: ATTEND Internal Medicine Cardiovascular Disease | DX: I70.0 Atherosclerosis of aorta (principal); J90 Pleural effusion, not elsewhere classified; M43.8X4 Other specified deforming dorsopathies, thoracic region; K56.609 Unspecified intestinal obstruction, unspecified as to partial versus complete obstruction; I65.23 Occlusion and stenosis of bilateral carotid arteries; I11.9 Hypertensive heart disease without heart failure; Z90.81 Acquired absence of spleen; Z98.890 Other specified postprocedural states | CPT/HCPCS: 71275; 74174; 93880; 94060; 94726; 94729; Q9967 ==

== ENCOUNTER 2019-05-17 08:00 | Inpatient (IN) | payer OTHER ==
[~2019-05-17] VITALS: Ht 157.5 cm; Wt 56.0 kg
[2019-05-19 07:28] VITALS: BP 93/55
== END 2019-05-19 12:55 | disposition home or self-care (01) | DRG 266 ==
LOC: ORIP 09:40 → CSU 13:22 → 5SO 15:38 → DCLOUNGE 05-19 12:40
PROVIDERS: ADMIT Internal Medicine Cardiovascular Disease; ATTEND Internal Medicine Cardiovascular Disease
PROC: 02RF38Z Replacement of Aortic Valve with Zooplastic Tissue, Percutaneous Approach (ICD-10-PCS; principal; 2019-05-17)
PROC: B24BZZ4 Ultrasonography of Heart with Aorta, Transesophageal (ICD-10-PCS; 2019-05-17)
PROC: B3101ZZ Fluoroscopy of Thoracic Aorta using Low Osmolar Contrast (ICD-10-PCS; 2019-05-17)
PROC: 03HY32Z Insertion of Monitoring Device into Upper Artery, Percutaneous Approach (ICD-10-PCS; 2019-05-17)
PROC: 0W9B3ZZ Drainage of Left Pleural Cavity, Percutaneous Approach (ICD-10-PCS; 2019-05-18)
DX: I08.3 Combined rheumatic disorders of mitral, aortic and tricuspid valves (principal); I50.33 Acute on chronic diastolic (congestive) heart failure; J91.8 Pleural effusion in other conditions classified elsewhere; D68.69 Other thrombophilia; I31.3 Pericardial effusion (noninflammatory); I11.0 Hypertensive heart disease with heart failure; I48.0 Paroxysmal atrial fibrillation; I27.20 Pulmonary hypertension, unspecified; I95.9 Hypotension, unspecified; H69.80 Other specified disorders of Eustachian tube, unspecified ear; F12.90 Cannabis use, unspecified, uncomplicated; E03.9 Hypothyroidism, unspecified; D72.829 Elevated white blood cell count, unspecified; Z00.6 Encounter for examination for normal comparison and control in clinical research program; Z79.899 Other long term (current) drug therapy; Z85.71 Personal history of Hodgkin lymphoma; Z85.72 Personal history of non-Hodgkin lymphomas; Z87.891 Personal history of nicotine dependence; Z92.3 Personal history of irradiation; Z88.5 Allergy status to narcotic agent; Z88.8 Allergy status to other drugs, medicaments and biological substances
CPT/HCPCS: 32555; 33361; 36415; 92986; 93355; 93591; J3490; 71045; 80048; 80053; 83880; 85025; 85347; 85610; 85730; 86850; 86900; 86923; 87081; 93005; 93306; 93312; 93321; 93325; C1760; C1769; C1894; G0378; J0690; J1100; J1644; J2405; J2704; J2720; J3010; J0330; J0360; Q9967

== ENCOUNTER → 2019-11-10 | Outpatient (CLI) | payer OTHER ==
[~2019-11-10] MED LIST changes: -DIGO125T PO; +DIGO125T85 PO; +DOCO100C PO; +PAPA1TAB8 PO; +VITAL REDS PO; +[UNRECOGNIZED DRUG - OTHER] PO
== END | disposition home or self-care (01) ==
LOC: CFH 15:46
PROVIDERS: ATTEND Internal Medicine Cardiovascular Disease
DX: J90 Pleural effusion, not elsewhere classified (principal); I35.0 Nonrheumatic aortic (valve) stenosis; I36.1 Nonrheumatic tricuspid (valve) insufficiency; I48.91 Unspecified atrial fibrillation; E87.1 Hypo-osmolality and hyponatremia; J98.11 Atelectasis
CPT/HCPCS: 71046

== ENCOUNTER 2021-04-25 15:18 | Inpatient (IN) | payer OTHER ==
[~2021-04-25] VITALS: Ht 144.8 cm; Wt 45.7 kg
[~2021-04-25 15:18] MED LIST changes: -OXYC5TAB3 PO; +OXYC5TAB98 PO
--- NOTE | 2021-04-25 16:14 | NUR ---
CC OF COUGH AND SOB, SENT FROM AFTER CXR SHOWS BILAT PLEURAL EFFUSIONS. PT STATES SHE HAD THIS BEFORE AND STATES " I DON'T FEEL BAD I DID BEFORE, I JUST KNOW SOMETHING IS WRONG". SO AT BEDSIDE. RESP EVEN AND UNLABORED.
[2021-04-25] MEDS ORDERED: SODIUM CHLORIDE FLUSH 10ML SYR IVF ONE (16:30)
[2021-04-25 16:46] LABS: BASOPHILS % (AUTO) 1 % (0-1); EOSINOPHILS % (AUTO) 1 % (1-7); LYMPHOCYTES % (AUTO) 9 % (22-44); MEAN CORPUSCULAR HEMOGLOBIN 36.3 pg (27.0-34.8); MEAN PLATELET VOLUME 8.3 fL (7.4-10.4); MONOCYTES % (AUTO) 11 % (2-9); NEUTROPHILS % (AUTO) 78 % (42-75); PLATELET COUNT 331 x10^3/uL (130-400); RED BLOOD COUNT 3.71 x10^6/uL (3.82-5.3); RED CELL DISTRIBUTION WIDTH 13.8 % (9.6-15.2)
[2021-04-25 16:57] LABS: ALANINE AMINOTRANSFERASE 37 U/L (12-78); ANION GAP 5 mmol/L (5-15); CALCIUM 8.3 mg/dL (8.5-10.1); CHLORIDE 100 mmol/L (98-107); CREATININE 0.61 mg/dL (0.55-1.02)
[2021-04-25 17:01] LABS: ALKALINE PHOSPHATASE 62 U/L (45-117); BILIRUBIN,TOTAL 0.8 mg/dL (0.2-1.0); TOTAL PROTEIN 6.9 g/dL (6.4-8.2); TROPONIN I < 0.015 ng/mL (0.000-0.045)
[2021-04-25] MEDS ORDERED: METO50TA4 PO (18:25)
--- NOTE | 2021-04-25 18:25 | NUR ---
PT TO IR
[2021-04-25] MEDS ORDERED: LIDOCAINE-MPF 1%, 5ML ONE (18:26)
[2021-04-25] MEDS ORDERED: BISACODYL 10 MG SUPP PR PRN (18:30)
[2021-04-25] MEDS ORDERED: POLYETHYLENE GLYCOL 17 GM PACKET PO PRN (18:30)
[2021-04-25] MEDS ORDERED: ONDANSETRON ODT 4 MG PO PRN (18:30)
[2021-04-25] MEDS ORDERED: OXYcodone IR 5MG TABLET PO PRN (18:30)
[2021-04-25] MEDS ORDERED: ACETAMINOPHEN 325 MG TABLET PO PRN (18:30)
[2021-04-25] MEDS ORDERED: SODIUM CHLORIDE FLUSH 10ML SYR IVF PRN (19:00)
--- NOTE | 2021-04-25 20:15 | NUR ---
pt hungry, requesting food. nicole long
--- NOTE | 2021-04-25 21:17 | NUR ---
report given to neftali tomlinson
[2021-04-25 21:53] VITALS: BP 94/63
[2021-04-25] MEDS: SODIUM CHLORIDE FLUSH 10ML SYR IVF SCH (21:54)
[2021-04-25 22:40] VITALS: BP 100/66
[2021-04-25] MEDS: APIXABAN 5 MG TABLET PO SCH (22:48)
[2021-04-25] MEDS: FUROSEMIDE 20 MG/2 ML IV SCH (22:49)
[2021-04-26] MEDS ORDERED: GUAIFENESIN/DM 200-20MG, 10ML UDC PO PRN (00:30)
[2021-04-26 00:47] VITALS: BP 106/71
[2021-04-26 05:48] LABS: BASOPHILS % (AUTO) 1 % (0-1); EOSINOPHILS % (AUTO) 1 % (1-7); LYMPHOCYTES % (AUTO) 8 % (22-44); MEAN CORPUSCULAR HEMOGLOBIN 36.6 pg (27.0-34.8); MEAN CORPUSCULAR HGB CONC 34.5 g/dL (32.4-35.8); MEAN PLATELET VOLUME 8.6 fL (7.4-10.4); MONOCYTES % (AUTO) 11 % (2-9); NEUTROPHILS % (AUTO) 79 % (42-75); PLATELET COUNT 315 x10^3/uL (130-400); RED BLOOD COUNT 3.62 x10^6/uL (3.82-5.3); RED CELL DISTRIBUTION WIDTH 14.1 % (9.6-15.2)
[2021-04-26 05:58] LABS: CALCIUM 8.2 mg/dL (8.5-10.1); CHLORIDE 103 mmol/L (98-107)
[2021-04-26 06:01] LABS: ANION GAP 4 mmol/L (5-15)
[2021-04-26 06:40] VITALS: BP 97/60
[2021-04-26] MEDS: FUROSEMIDE 20 MG/2 ML IV SCH (08:14)
[2021-04-26] MEDS: APIXABAN 5 MG TABLET PO SCH (08:15)
[2021-04-26] MEDS: SODIUM CHLORIDE FLUSH 10ML SYR IVF SCH (08:32)
[2021-04-26] MEDS ORDERED: SENNA/DOCUSATE TABLET PO SCH (09:00)
[2021-04-26] MEDS ORDERED: METOPROLOL SUCCINATE 50 MG TAB.ER.24H PO SCH (09:00)
[2021-04-26] MEDS ORDERED: FURO-93 PO (13:02)
[2021-04-26] MEDS ORDERED: AMOX1TAB64 PO (13:03)
== END 2021-04-26 14:35 | disposition home or self-care (01) | DRG 309 ==
LOC: ED 15:48 → EDIP 19:16 → 5SO 21:43 → DCLOUNGE 04-26 14:08
PROVIDERS: ADMIT Internal Medicine; ATTEND Hospitalist
PROC: 0W9B3ZZ Drainage of Left Pleural Cavity, Percutaneous Approach (ICD-10-PCS; principal; 2021-04-25)
DX: R00.0 Tachycardia, unspecified (principal); D68.69 Other thrombophilia; J91.8 Pleural effusion in other conditions classified elsewhere; D75.89 Other specified diseases of blood and blood-forming organs; E03.9 Hypothyroidism, unspecified; I08.3 Combined rheumatic disorders of mitral, aortic and tricuspid valves; I48.91 Unspecified atrial fibrillation; I50.9 Heart failure, unspecified; M81.0 Age-related osteoporosis without current pathological fracture; Z20.822 Contact with and (suspected) exposure to COVID-19; Z80.0 Family history of malignant neoplasm of digestive organs; Z82.49 Family history of ischemic heart disease and other diseases of the circulatory system; Z82.61 Family history of arthritis; Z82.62 Family history of osteoporosis; Z85.71 Personal history of Hodgkin lymphoma; Z90.81 Acquired absence of spleen; Z95.2 Presence of prosthetic heart valve; Z88.6 Allergy status to analgesic agent; Z91.011 Allergy to milk products
CPT/HCPCS: 32555; 36415; 80048; 80053; 82042; 82607; 83615; 83880; 84484; 85025; 87070; 87205; 89051; 93005; G0378; J1940